=== PATIENT | male | born 1975 | race African-American/Black ===

== ENCOUNTER 2018-10-20 21:13 | Emergency (ER) | payer MEDICAID ==
[~2018-10-20] VITALS: Ht 177.8 cm; Wt 86.4 kg
[2018-10-20 21:15] VITALS: Ht 177.8 cm; Wt 86.4 kg
[2018-10-20] MEDS ORDERED: COREG25 MG PO (21:17)
--- NOTE | 2018-10-20 22:01 | NUR ---
DR HANDLEY NOTIFIED, CHARGE NURSE AND ATTENDING IN REGARDS TO ASSESSMENT FINDINGS, PT IS IN CUSTODY OF THE POLICE AND IN LEG IRONS AND HAND CUFFS, MINOR PHYSICAL INJURY TREATED BY E.D. STAFF, PT IS TO BE TRANSPORTED TO POLICE STATION.
[2018-10-20 22:11] VITALS: BP 215/150
== END 2018-10-20 22:13 ==
LOC: D.ER 21:13
DX: S61.411A Laceration without foreign body of right hand, initial encounter (principal); X58.XXXA Exposure to other specified factors, initial encounter; Y93.89 Activity, other specified; Y92.013 Bedroom of single-family (private) house as the place of occurrence of the external cause